=== PATIENT | male | born 1975 | race Caucasian/White ===

== ENCOUNTER 2017-10-09 10:16 | Observation (INO) ==
[2017-10-09] MEDS ORDERED: ONDANSETRON 4 MG/2 ML VIAL IV PRN (12:56)
[2017-10-09] MEDS ORDERED: PROMETHAZINE 25 MG/1 ML VIAL IM PRN (12:56)
[2017-10-09] MEDS ORDERED: HYDROmorphone 2 MG/1 ML VIAL IV PRN (12:56)
[2017-10-09] MEDS: SODIUM CHLORIDE 0.45% 1,000 ML IV SCH (13:33)
[2017-10-09] MEDS ORDERED: ACETAMINOPHEN 325 MG TABLET PO PRN (17:35)
[2017-10-10] MEDS: SODIUM CHLORIDE 0.45% 1,000 ML IV SCH ×3 (02:30→08:10)
[2017-10-10 07:40] VITALS: BP 114/67
[2017-10-10] MEDS ORDERED: TAMSULOSIN 0.4 MG CAPSULE PO SCH (09:00)
== END 2017-10-10 10:23 | disposition home or self-care (01) ==
LOC: N.EDINP 10:16 → N.ED 10:16 → N.EDINP 12:46 → N.5E 12:55
PROVIDERS: ADMIT Surgery; ATTEND Surgery